=== PATIENT | female | born 1940 | race Two or more races ===

== ENCOUNTER 2022-11-05 13:09 | Emergency (ER) | payer OTHER ==
[~2022-11-05] VITALS: Ht 152.4 cm; Wt 72.6 kg
[2022-11-05] MEDS ORDERED: ZESTRIL20 MG PO (13:47)
[2022-11-05] MEDS ORDERED: GLUMETZA500 MG PO (13:48)
== END 2022-11-05 19:02 | disposition home or self-care (01) ==
LOC: ER 13:09
PROVIDERS: General Practice
DX: N39.0 Urinary tract infection, site not specified (principal); R10.2 Pelvic and perineal pain; I10 Essential (primary) hypertension
CPT/HCPCS: 36415; 71045; 74176; 96365; 99284; J1885